=== PATIENT | male | born 1940 | race Caucasian/White ===

== ENCOUNTER 2021-08-09 02:36 | Outpatient (RCR) | payer OTHER, SELFPAY ==
[2021-08-09 12:46] LABS: Abs Immature Grans 0.29 10^3/uL (0.0-0.06); HCT 30.5 % (40.0-50.0); HGB 9.5 g/dL (13.5-17.5); MCH 30.6 pg (27.0-33.0); MCHC 31.1 % (32.0-36.0); MCV 98 fL (80-95); MPV 10.6 fL (8.0-11.0); RDW 20.2 % (11.8-14.1); RDW-SD 67.9 fL
[2021-08-09 13:00] LABS: WBC 41.99 10^3/uL (4.4-10.8)
[2021-08-09 13:02] LABS: ALT 33 U/L (16-63); AST 24 U/L (15-37); Albumin 3.1 g/dL (3.4-5.0); Alkaline Phosphatase 117 U/L (46-116); Anion Gap 9.4 mmol/L (3-11); BUN 21 mg/dL (7-18); Bilirubin, Total 0.9 mg/dL (0.2-1.0); CO2 27.6 mmol/L (21.0-32.0); CREATININE 0.8 mg/dL (0.70-1.30); Calcium 8.4 mg/dL (8.5-10.1); Chloride 100 mmol/L (98-107); Glucose 176 mg/dL (74-106); PHOSPHORUS 3.7 mg/dL (2.6-4.7); Potassium 3.4 mmol/L (3.5-5.1); Sodium 137 mmol/L (136-145); Total Protein 6.4 g/dL (6.4-8.2); Uric Acid 3.3 mg/dL (3.5-7.2)
[2021-08-09 13:14] LABS: Absolute Basophil Count 0.42 10^3/uL (0.0-0.2); Absolute Lymphocyte Count 23.09 10^3/uL (1.2-3.4); Absolute Monocyte Count 8.82 10^3/uL (0.1-0.8); Absolute Neutrophil Count 8.82 10^3/uL (1.2-6.7); Bands % 2; Metamyelocytes % 2
[2021-08-09 13:15] LABS: Anisocytosis 2+; Basophilic Stippling Present; Diff Comment Manual Differential; Polychromasia Present
[2021-08-09 13:16] LABS: Platelet Count 64 10^3/uL (130-400)
== END 2021-08-11 23:59 | disposition home or self-care (01) ==
LOC: INF 02:36
PROVIDERS: PCP Internal Medicine Hematology & Oncology; Visit Provider Family Medicine
DX: C83.10 Mantle cell lymphoma, unspecified site (principal)
CPT/HCPCS: 36415; 80053; 86850; 86900; 86901; 84100; 84550; 85025

== ENCOUNTER 2021-09-10 09:00 | Outpatient (RCR) | payer OTHER, SELFPAY ==
[2021-08-13 08:28] LABS: Abs Immature Grans 0.29 10^3/uL (0.0-0.06); HCT 30.6 % (40.0-50.0); HGB 9.4 g/dL (13.5-17.5); MCH 30.5 pg (27.0-33.0); MCHC 30.7 % (32.0-36.0); MCV 99 fL (80-95); MPV 12.2 fL (8.0-11.0); RBC 3.08 10^6/uL (4.36-5.78); RDW 20.4 % (11.8-14.1); RDW-SD 71.7 fL
[2021-08-13 08:45] LABS: Absolute Lymphocyte Count 28.24 10^3/uL (1.2-3.4); Absolute Monocyte Count 0.96 10^3/uL (0.1-0.8); Absolute Neutrophil Count 6.22 10^3/uL (1.2-6.7); Anisocytosis 2+; Bands % 1; Diff Comment Manual Differential; Other Cells % 26
[2021-08-13 08:46] LABS: Platelet Count 88 10^3/uL (130-400)
[2021-08-13 08:48] LABS: WBC 47.87 10^3/uL (4.4-10.8)
[2021-08-13 09:02] LABS: ALT 24 U/L (16-63); AST 20 U/L (15-37); Albumin 2.9 g/dL (3.4-5.0); Alkaline Phosphatase 122 U/L (46-116); Anion Gap 8.9 mmol/L (3-11); BUN 17 mg/dL (7-18); Bilirubin, Total 0.7 mg/dL (0.2-1.0); CO2 29.1 mmol/L (21.0-32.0); CREATININE 0.8 mg/dL (0.70-1.30); Calcium 8.7 mg/dL (8.5-10.1); Chloride 98 mmol/L (98-107); Glucose 281 mg/dL (74-106); Potassium 3.5 mmol/L (3.5-5.1); Sodium 136 mmol/L (136-145); Total Protein 6.3 g/dL (6.4-8.2)
[2021-08-13 11:41] LABS: PHOSPHORUS 2.5 mg/dL (2.6-4.7); Uric Acid 3.9 mg/dL (3.5-7.2)
[2021-08-16 08:34] LABS: Abs Immature Grans 0.19 10^3/uL (0.0-0.06); HCT 28.3 % (40.0-50.0); HGB 8.7 g/dL (13.5-17.5); MCH 30.5 pg (27.0-33.0); MCHC 30.7 % (32.0-36.0); MCV 99 fL (80-95); MPV 10.6 fL (8.0-11.0); RBC 2.85 10^6/uL (4.36-5.78); RDW 19.7 % (11.8-14.1); RDW-SD 69.9 fL
[2021-08-16 08:38] LABS: ALT 24 U/L (16-63); AST 21 U/L (15-37); Albumin 2.5 g/dL (3.4-5.0); Alkaline Phosphatase 111 U/L (46-116); Anion Gap 8.2 mmol/L (3-11); BUN 11 mg/dL (7-18); Bilirubin, Total 0.6 mg/dL (0.2-1.0); CO2 29.8 mmol/L (21.0-32.0); CREATININE 0.8 mg/dL (0.70-1.30); Calcium 8.1 mg/dL (8.5-10.1); Chloride 95 mmol/L (98-107); Glucose 243 mg/dL (74-106); PHOSPHORUS 2.4 mg/dL (2.6-4.7); Potassium 3.1 mmol/L (3.5-5.1); Sodium 133 mmol/L (136-145); Uric Acid 3.1 mg/dL (3.5-7.2)
[2021-08-16 09:13] LABS: WBC 48.74 10^3/uL (4.4-10.8)
[2021-08-16 09:14] LABS: Absolute Lymphocyte Count 33.14 10^3/uL (1.2-3.4); Absolute Monocyte Count 8.29 10^3/uL (0.1-0.8); Absolute Neutrophil Count 5.85 10^3/uL (1.2-6.7); Anisocytosis 1+; Diff Comment Manual Differential
[2021-08-16 09:15] LABS: Platelet Count 80 10^3/uL (130-400)
[2021-08-20 08:28] LABS: HGB 8.6 g/dL (13.5-17.5); MCH 30.2 pg (27.0-33.0); MCHC 30.7 % (32.0-36.0); MCV 98 fL (80-95); RBC 2.85 10^6/uL (4.36-5.78); RDW 19.1 % (11.8-14.1)
[2021-08-20 08:42] LABS: ALT 30 U/L (16-63); AST 26 U/L (15-37); Albumin 2.7 g/dL (3.4-5.0); Alkaline Phosphatase 119 U/L (46-116); Anion Gap 8.5 mmol/L (3-11); BUN 12 mg/dL (7-18); Bilirubin, Total 0.7 mg/dL (0.2-1.0); CO2 30.5 mmol/L (21.0-32.0); CREATININE 0.8 mg/dL (0.70-1.30); Calcium 8.4 mg/dL (8.5-10.1); Chloride 93 mmol/L (98-107); Glucose 225 mg/dL (74-106); PHOSPHORUS 2.6 mg/dL (2.6-4.7); Potassium 3.3 mmol/L (3.5-5.1); Sodium 132 mmol/L (136-145); Total Protein 6.3 g/dL (6.4-8.2); Uric Acid 4.1 mg/dL (3.5-7.2)
[2021-08-20 08:47] LABS: Absolute Basophil Count 0.61 10^3/uL (0.0-0.2); Absolute Monocyte Count 0.61 10^3/uL (0.1-0.8); Absolute Neutrophil Count 4.85 10^3/uL (1.2-6.7); Atypical Lymphocytes % 2; Metamyelocytes % 1; Myelocytes % 2
[2021-08-20 08:48] LABS: Diff Comment Manual Differential; Other Cells % 16; RBC Morphology Normal
[2021-08-20 08:49] LABS: WBC 60.57 10^3/uL (4.4-10.8)
[2021-08-27 07:59] LABS: HCT 26.6 % (40.0-50.0); HGB 7.8 g/dL (13.5-17.5); MCH 29.9 pg (27.0-33.0); MCHC 29.3 % (32.0-36.0); MCV 102 fL (80-95); MPV 10.5 fL (8.0-11.0); RBC 2.61 10^6/uL (4.36-5.78); RDW 19.9 % (11.8-14.1); RDW-SD 70.4 fL
[2021-08-27 08:14] LABS: WBC 152.12 10^3/uL (4.4-10.8)
[2021-08-27 08:16] LABS: Absolute Lymphocyte Count 95.84 10^3/uL (1.2-3.4); Absolute Monocyte Count 4.56 10^3/uL (0.1-0.8); Absolute Neutrophil Count 51.72 10^3/uL (1.2-6.7); Bands % 6; Diff Comment Manual Differential; Platelet Count 59 10^3/uL (130-400); RBC Morphology Normal
[2021-08-27 08:27] LABS: ALT 32 U/L (16-63); AST 28 U/L (15-37); Albumin 2.6 g/dL (3.4-5.0); Alkaline Phosphatase 185 U/L (46-116); Anion Gap 9.9 mmol/L (3-11); BUN 17 mg/dL (7-18); Bilirubin, Total 0.7 mg/dL (0.2-1.0); CO2 25.1 mmol/L (21.0-32.0); CREATININE 1.1 mg/dL (0.70-1.30); Calcium 8.5 mg/dL (8.5-10.1); Chloride 101 mmol/L (98-107); Glucose 153 mg/dL (74-106); PHOSPHORUS 3.8 mg/dL (2.6-4.7); Potassium 4.7 mmol/L (3.5-5.1); Sodium 136 mmol/L (136-145); Total Protein 5.9 g/dL (6.4-8.2); Uric Acid 5.6 mg/dL (3.5-7.2)
[2021-08-27] MEDS: Furosemide 40 MG/4 ML VIAL IVP (09:41)
[2021-08-27] MEDS: Normal Saline Flush 10 ML SYR IVP (09:42)
[2021-08-27 09:53] VITALS: BP 88/45; PULSE 97; RESP 16; TEMP 36.6; O2SAT 96
[2021-08-27 10:08] VITALS: BP 106/58; PULSE 107; RESP 22; TEMP 36.6; O2SAT 92
[2021-08-27 10:38] VITALS: BP 93/56; PULSE 102; RESP 22; TEMP 36.9; O2SAT 95
[2021-08-27 11:38] VITALS: BP 99/58; PULSE 98; RESP 20; TEMP 36.9; O2SAT 97
[2021-08-27 11:44] VITALS: BP 99/58; PULSE 97; RESP 20; TEMP 36.9; O2SAT 97
[2021-08-30 08:05] LABS: Abs Immature Grans 6.06 10^3/uL (0.0-0.06); HCT 28.7 % (40.0-50.0); HGB 8.6 g/dL (13.5-17.5); MCH 29.8 pg (27.0-33.0); MCV 99 fL (80-95); MPV 9.2 fL (8.0-11.0); RBC 2.89 10^6/uL (4.36-5.78); RDW 20.4 % (11.8-14.1); RDW-SD 70.8 fL
[2021-08-30 08:17] LABS: Absolute Eosinophil Count 1.14 10^3/uL (0.0-0.7); Absolute Lymphocyte Count 52.21 10^3/uL (1.2-3.4); Absolute Monocyte Count 2.27 10^3/uL (0.1-0.8); Atypical Lymphocytes % 8; Bands % 6; Platelet Count 44 10^3/uL (130-400); WBC 113.51 10^3/uL (4.4-10.8)
[2021-08-30 08:18] LABS: Anisocytosis 2+; Diff Comment Manual Differential; Other Cells % 14
[2021-08-30 08:19] LABS: ALT 32 U/L (16-63); AST 35 U/L (15-37); Albumin 2.6 g/dL (3.4-5.0); Alkaline Phosphatase 360 U/L (46-116); Anion Gap 9.3 mmol/L (3-11); BUN 17 mg/dL (7-18); Bilirubin, Total 0.5 mg/dL (0.2-1.0); CO2 24.7 mmol/L (21.0-32.0); Calcium 8.3 mg/dL (8.5-10.1); Chloride 99 mmol/L (98-107); Glucose 157 mg/dL (74-106); PHOSPHORUS 3.2 mg/dL (2.6-4.7); Potassium 4.5 mmol/L (3.5-5.1); Sodium 133 mmol/L (136-145); Total Protein 6.1 g/dL (6.4-8.2); Uric Acid 6.4 mg/dL (3.5-7.2)
[2021-09-10 08:21] LABS: HCT 22.1 % (40.0-50.0); MCH 30.6 pg (27.0-33.0); MCHC 30.3 % (32.0-36.0); MCV 101 fL (80-95); MPV 10.7 fL (8.0-11.0); RBC 2.19 10^6/uL (4.36-5.78); RDW 21.8 % (11.8-14.1); RDW-SD 77.4 fL
[2021-09-10 08:34] LABS: ALT 30 U/L (16-63); AST 18 U/L (15-37); Albumin 2.2 g/dL (3.4-5.0); Alkaline Phosphatase 204 U/L (46-116); Anion Gap 10.9 mmol/L (3-11); BUN 18 mg/dL (7-18); Bilirubin, Total 1.2 mg/dL (0.2-1.0); CO2 24.1 mmol/L (21.0-32.0); CREATININE 0.9 mg/dL (0.70-1.30); Calcium 8.4 mg/dL (8.5-10.1); Chloride 100 mmol/L (98-107); Glucose 200 mg/dL (74-106); PHOSPHORUS 3.8 mg/dL (2.6-4.7); Potassium 4.6 mmol/L (3.5-5.1); Sodium 135 mmol/L (136-145); Total Protein 5.6 g/dL (6.4-8.2); Uric Acid 3.5 mg/dL (3.5-7.2)
[2021-09-10 08:39] LABS: Absolute Lymphocyte Count 42.23 10^3/uL (1.2-3.4); Absolute Neutrophil Count 17.14 10^3/uL (1.2-6.7); Bands % 2; Metamyelocytes % 1; Other Cells % 2; Platelet Count 45 10^3/uL (130-400)
[2021-09-10 08:40] LABS: Anisocytosis 2+; Diff Comment Manual Differential
[2021-09-10 08:54] LABS: HGB 6.7 g/dL (13.5-17.5); WBC 61.21 10^3/uL (4.4-10.8)
[2021-09-10] MEDS: Furosemide 40 MG/4 ML VIAL IVP (09:08)
[2021-09-10] MEDS: Normal Saline Flush 10 ML SYR IVP (09:09)
[2021-09-10 09:30] VITALS: BP 101/52; PULSE 96; RESP 20; TEMP 36.6; O2SAT 93
[2021-09-10 09:50] VITALS: BP 94/57; PULSE 96; RESP 20; TEMP 36.8; O2SAT 93
[2021-09-10 10:10] VITALS: BP 94/54; PULSE 96; RESP 20; TEMP 36.8; O2SAT 93
[2021-09-10 10:45] VITALS: BP 101/56; PULSE 59; RESP 18; TEMP 36.7; O2SAT 95
[2021-09-10 11:45] VITALS: BP 102/62; PULSE 96; RESP 18; TEMP 36.7; O2SAT 95
== END 2021-09-11 23:59 | disposition home or self-care (01) ==
LOC: INF 09:00
PROVIDERS: Internal Medicine Hematology; PCP Internal Medicine Hematology & Oncology; Visit Provider Family Medicine
DX: C83.10 Mantle cell lymphoma, unspecified site (principal)
CPT/HCPCS: 36415; 36430; 80053; 86850; 86900; 86901; 86920; 96374; 84100; 84550; 85025; J1940; P9016

== ENCOUNTER 2021-10-11 02:04 | Outpatient (RCR) | payer OTHER, SELFPAY ==
[2021-09-12 00:05] VITALS: BP 102/62; PULSE 96; RESP 18; TEMP 36.7
[2021-09-20 08:55] LABS: HCT 26.4 % (40.0-50.0); HGB 8.2 g/dL (13.5-17.5); MCH 31.8 pg (27.0-33.0); MCHC 31.1 % (32.0-36.0); MCV 102 fL (80-95); MPV 9.4 fL (8.0-11.0); RBC 2.58 10^6/uL (4.36-5.78); RDW 21.3 % (11.8-14.1); RDW-SD 76.5 fL
[2021-09-20 09:05] LABS: WBC 62.85 10^3/uL (4.4-10.8)
[2021-09-20 09:08] LABS: Absolute Lymphocyte Count 46.51 10^3/uL (1.2-3.4); Absolute Monocyte Count 1.26 10^3/uL (0.1-0.8); Absolute Neutrophil Count 11.31 10^3/uL (1.2-6.7); Atypical Lymphocytes % 3; Bands % 2; Other Cells % 6
[2021-09-20 09:09] LABS: Anisocytosis 2+; Diff Comment Manual Differential; Platelet Count 48 10^3/uL (130-400)
[2021-09-24 08:29] LABS: Abs Immature Grans 1.14 10^3/uL (0.0-0.06); HCT 24.4 % (40.0-50.0); HGB 7.6 g/dL (13.5-17.5); MCH 32.2 pg (27.0-33.0); MCHC 31.1 % (32.0-36.0); MCV 103 fL (80-95); Nucleated RBC 0.1 % (0.0-0.3); RBC 2.36 10^6/uL (4.36-5.78); RDW 21.9 % (11.8-14.1); RDW-SD 81.7 fL
[2021-09-24 08:45] LABS: Absolute Lymphocyte Count 67.33 10^3/uL (1.2-3.4); Absolute Monocyte Count 0.96 10^3/uL (0.1-0.8); Absolute Neutrophil Count 16.35 10^3/uL (1.2-6.7); Anisocytosis 2+; Bands % 2; Diff Comment Manual Differential; Macrocytosis 1+; Other Cells % 12
[2021-09-24 08:54] LABS: WBC 96.19 10^3/uL (4.4-10.8)
[2021-09-24 08:56] LABS: ALT 22 U/L (16-63); AST 24 U/L (15-37); Alkaline Phosphatase 242 U/L (46-116); Anion Gap 8.2 mmol/L (3-11); BUN 13 mg/dL (7-18); Bilirubin, Total 0.5 mg/dL (0.2-1.0); CO2 25.8 mmol/L (21.0-32.0); CREATININE 0.8 mg/dL (0.70-1.30); Calcium 7.8 mg/dL (8.5-10.1); Chloride 100 mmol/L (98-107); Glucose 186 mg/dL (74-106); PHOSPHORUS 2.8 mg/dL (2.6-4.7); Potassium 4.5 mmol/L (3.5-5.1); Sodium 134 mmol/L (136-145); Total Protein 5.2 g/dL (6.4-8.2); Uric Acid 4.6 mg/dL (3.5-7.2)
[2021-09-24] MEDS: Normal Saline Flush 10 ML SYR IVP (09:02)
[2021-09-24] MEDS: Furosemide 40 MG/4 ML VIAL IVP (09:02)
[2021-09-24 09:51] VITALS: BP 102/56; PULSE 94; RESP 18; TEMP 36.5; O2SAT 94
[2021-09-24 10:06] VITALS: BP 92/56; PULSE 98; RESP 18; TEMP 36.6; O2SAT 97
[2021-09-24 10:22] VITALS: BP 94/55; PULSE 96; RESP 18; TEMP 36.5; O2SAT 96
[2021-09-24 10:36] VITALS: BP 99/57; PULSE 85; RESP 17; TEMP 36.5; O2SAT 100
[2021-09-24 12:00] VITALS: BP 88/59; PULSE 88; RESP 18; TEMP 36.6; O2SAT 98
[2021-09-28] MEDS: Normal Saline Flush 10 ML SYR IVP (08:12)
[2021-09-28 08:28] LABS: Abs Immature Grans 0.52 10^3/uL (0.0-0.06); HCT 28.7 % (40.0-50.0); HGB 8.6 g/dL (13.5-17.5); MCH 31.6 pg (27.0-33.0); MCV 106 fL (80-95); MPV 9.3 fL (8.0-11.0); RBC 2.72 10^6/uL (4.36-5.78); RDW 21.4 % (11.8-14.1); RDW-SD 80.4 fL
[2021-09-28 08:41] LABS: ALT 27 U/L (16-63); AST 34 U/L (15-37); Albumin 2.3 g/dL (3.4-5.0); Alkaline Phosphatase 237 U/L (46-116); Anion Gap 7.2 mmol/L (3-11); BUN 12 mg/dL (7-18); Bilirubin, Total 0.6 mg/dL (0.2-1.0); CO2 30.8 mmol/L (21.0-32.0); CREATININE 0.7 mg/dL (0.70-1.30); Calcium 7.8 mg/dL (8.5-10.1); Chloride 103 mmol/L (98-107); Glucose 159 mg/dL (74-106); PHOSPHORUS 3.3 mg/dL (2.6-4.7); Potassium 4.6 mmol/L (3.5-5.1); Sodium 141 mmol/L (136-145); Total Protein 5.7 g/dL (6.4-8.2); Uric Acid 4.8 mg/dL (3.5-7.2)
[2021-09-28 09:22] LABS: Platelet Count 51 10^3/uL (130-400)
[2021-09-28 09:34] LABS: Absolute Neutrophil Count 9.26 10^3/uL (1.2-6.7); Bands % 0
[2021-09-28 09:35] LABS: Absolute Monocyte Count 22.23 10^3/uL (0.1-0.8); Atypical Lymphocytes % 0; Metamyelocytes % 2
[2021-09-28 09:36] LABS: Anisocytosis 2+; Diff Comment Manual Differential; Macrocytosis 2+; Other Cells % 13; Polychromasia Present
[2021-09-28 09:42] LABS: WBC 61.75 10^3/uL (4.4-10.8)
[2021-10-01] MEDS: Normal Saline Flush 10 ML SYR IVP (07:55)
[2021-10-01 08:07] LABS: HCT 27.3 % (40.0-50.0); HGB 8.5 g/dL (13.5-17.5); MCH 32.6 pg (27.0-33.0); MCHC 31.1 % (32.0-36.0); MCV 105 fL (80-95); MPV 10.8 fL (8.0-11.0); RBC 2.61 10^6/uL (4.36-5.78); RDW-SD 79.3 fL
[2021-10-01 08:18] LABS: WBC 50.36 10^3/uL (4.4-10.8)
[2021-10-01 08:26] LABS: Absolute Lymphocyte Count 39.28 10^3/uL (1.2-3.4); Absolute Monocyte Count 1.51 10^3/uL (0.1-0.8); Absolute Neutrophil Count 4.53 10^3/uL (1.2-6.7); Anisocytosis 2+; Bands % 1; Diff Comment Manual Differential; Other Cells % 9; Platelet Count 39 10^3/uL (130-400)
[2021-10-01 08:31] LABS: ALT 28 U/L (16-63); AST 28 U/L (15-37); Albumin 2.3 g/dL (3.4-5.0); Alkaline Phosphatase 228 U/L (46-116); BUN 12 mg/dL (7-18); Bilirubin, Total 0.6 mg/dL (0.2-1.0); CREATININE 0.7 mg/dL (0.70-1.30); Calcium 8.1 mg/dL (8.5-10.1); Chloride 96 mmol/L (98-107); Glucose 181 mg/dL (74-106); PHOSPHORUS 2.9 mg/dL (2.6-4.7); Potassium 4.2 mmol/L (3.5-5.1); Sodium 133 mmol/L (136-145); Total Protein 5.5 g/dL (6.4-8.2)
[2021-10-04 08:36] LABS: HCT 24.2 % (40.0-50.0); HGB 7.8 g/dL (13.5-17.5); MCH 32.9 pg (27.0-33.0); MCHC 32.2 % (32.0-36.0); MCV 102 fL (80-95); RBC 2.37 10^6/uL (4.36-5.78); RDW 20.9 % (11.8-14.1)
[2021-10-04 08:50] LABS: ALT 25 U/L (16-63); AST 26 U/L (15-37); Albumin 2.3 g/dL (3.4-5.0); Alkaline Phosphatase 226 U/L (46-116); BUN 13 mg/dL (7-18); Bilirubin, Total 0.6 mg/dL (0.2-1.0); CREATININE 0.8 mg/dL (0.70-1.30); Calcium 8.1 mg/dL (8.5-10.1); Chloride 95 mmol/L (98-107); Glucose 149 mg/dL (74-106); PHOSPHORUS 3.3 mg/dL (2.6-4.7); Potassium 3.9 mmol/L (3.5-5.1); Sodium 132 mmol/L (136-145); Total Protein 5.5 g/dL (6.4-8.2); Uric Acid 4.1 mg/dL (3.5-7.2)
[2021-10-04 09:02] LABS: WBC 47.38 10^3/uL (4.4-10.8)
[2021-10-04 09:10] LABS: Absolute Lymphocyte Count 41.22 10^3/uL (1.2-3.4); Absolute Monocyte Count 0.47 10^3/uL (0.1-0.8); Absolute Neutrophil Count 4.26 10^3/uL (1.2-6.7); Platelet Count 51 10^3/uL (130-400)
[2021-10-04 09:11] LABS: Anisocytosis 2+; Diff Comment Manual Differential; Other Cells % 3
[2021-10-04 09:42] VITALS: BP 96/58; PULSE 97; RESP 18; TEMP 36.7; O2SAT 96
[2021-10-04] MEDS: Furosemide 40 MG/4 ML VIAL IVP (09:53)
[2021-10-04 09:57] VITALS: BP 99/58; PULSE 94; RESP 18; TEMP 36.5; O2SAT 95
[2021-10-04 10:12] VITALS: BP 122/76; PULSE 94; RESP 18; TEMP 36.6; O2SAT 95
[2021-10-04 10:42] VITALS: BP 114/48; PULSE 100; RESP 18; TEMP 36.2; O2SAT 94
[2021-10-04] MEDS: Normal Saline Flush 10 ML SYR IVP (11:30)
[2021-10-04 11:42] VITALS: BP 112/50; PULSE 99; RESP 18; TEMP 36.4; O2SAT 95
[2021-10-04 11:59] VITALS: BP 103/49; PULSE 99; RESP 18; TEMP 36.4; O2SAT 98
[2021-10-08 07:59] LABS: HCT 27.9 % (40.0-50.0); HGB 8.9 g/dL (13.5-17.5); MCH 33.2 pg (27.0-33.0); MCHC 31.9 % (32.0-36.0); MCV 104 fL (80-95); RBC 2.68 10^6/uL (4.36-5.78); RDW 20.9 % (11.8-14.1); RDW-SD 77.7 fL
[2021-10-08 08:08] LABS: Absolute Eosinophil Count 0.68 10^3/uL (0.0-0.7); Absolute Lymphocyte Count 47.79 10^3/uL (1.2-3.4); Absolute Monocyte Count 1.37 10^3/uL (0.1-0.8); Absolute Neutrophil Count 6.83 10^3/uL (1.2-6.7); Bands % 5
[2021-10-08 08:09] LABS: Anisocytosis 2+; Diff Comment Manual Differential; Other Cells % 17; Platelet Count 61 10^3/uL (130-400)
[2021-10-08 08:12] LABS: WBC 68.27 10^3/uL (4.4-10.8)
[2021-10-08 08:13] LABS: PHOSPHORUS 3.5 mg/dL (2.6-4.7); Uric Acid 4.4 mg/dL (3.5-7.2)
[2021-10-11 08:02] LABS: HCT 30.6 % (40.0-50.0); HGB 9.3 g/dL (13.5-17.5); MCH 32.2 pg (27.0-33.0); MCHC 30.4 % (32.0-36.0); MCV 106 fL (80-95); RBC 2.89 10^6/uL (4.36-5.78); RDW 20.8 % (11.8-14.1)
[2021-10-11 08:16] LABS: Absolute Lymphocyte Count 70.08 10^3/uL (1.2-3.4); Absolute Monocyte Count 1.57 10^3/uL (0.1-0.8); Absolute Neutrophil Count 3.15 10^3/uL (1.2-6.7); Anisocytosis 2+; Atypical Lymphocytes % 1; Bands % 1; Diff Comment Manual Differential; Metamyelocytes % 3; Other Cells % 2
[2021-10-11 08:17] LABS: Macrocytosis 1+
[2021-10-11 08:19] LABS: ALT 31 U/L (16-63); AST 35 U/L (15-37); Albumin 2.4 g/dL (3.4-5.0); Alkaline Phosphatase 306 U/L (46-116); Anion Gap 6.4 mmol/L (3-11); BUN 12 mg/dL (7-18); Bilirubin, Total 0.4 mg/dL (0.2-1.0); CO2 27.6 mmol/L (21.0-32.0); CREATININE 0.7 mg/dL (0.70-1.30); Calcium 8.3 mg/dL (8.5-10.1); Chloride 103 mmol/L (98-107); Glucose 163 mg/dL (74-106); PHOSPHORUS 3.1 mg/dL (2.6-4.7); Potassium 4.9 mmol/L (3.5-5.1); Sodium 137 mmol/L (136-145); Total Protein 5.8 g/dL (6.4-8.2); Uric Acid 4.8 mg/dL (3.5-7.2)
[2021-10-11 08:22] LABS: WBC 78.74 10^3/uL (4.4-10.8)
[2021-10-11] MEDS: Normal Saline Flush 10 ML SYR IVP (08:40)
== END 2021-10-11 23:59 | disposition home or self-care (01) ==
LOC: INF 02:04
PROVIDERS: Internal Medicine Hematology; PCP Internal Medicine Hematology & Oncology; Visit Provider Family Medicine
DX: C83.10 Mantle cell lymphoma, unspecified site (principal)
CPT/HCPCS: 36415; 36430; 80053; 86850; 86900; 86901; 86920; 84100; 84550; 85025; J1940; P9016

== ENCOUNTER 2021-11-08 02:44 | Outpatient (RCR) | payer OTHER, SELFPAY ==
[2021-10-12 00:04] VITALS: BP 103/49; PULSE 99; RESP 18; TEMP 36.4
[2021-10-22 08:18] LABS: HCT 25.4 % (40.0-50.0); MCH 33.2 pg (27.0-33.0); MCHC 31.5 % (32.0-36.0); MCV 105 fL (80-95); RBC 2.41 10^6/uL (4.36-5.78); RDW 21.5 % (11.8-14.1); RDW-SD 81.7 fL
[2021-10-22 08:32] LABS: ALT 24 U/L (16-63); AST 32 U/L (15-37); Albumin 2.6 g/dL (3.4-5.0); Alkaline Phosphatase 339 U/L (46-116); Anion Gap 9.5 mmol/L (3-11); BUN 11 mg/dL (7-18); Bilirubin, Total 0.4 mg/dL (0.2-1.0); CO2 25.5 mmol/L (21.0-32.0); CREATININE 0.7 mg/dL (0.70-1.30); Calcium 8.4 mg/dL (8.5-10.1); Chloride 102 mmol/L (98-107); Glucose 161 mg/dL (74-106); PHOSPHORUS 3.8 mg/dL (2.6-4.7); Potassium 4.6 mmol/L (3.5-5.1); Sodium 137 mmol/L (136-145); Total Protein 6.1 g/dL (6.4-8.2); Uric Acid 3.4 mg/dL (3.5-7.2)
[2021-10-22 08:40] LABS: Absolute Neutrophil Count 8.88 10^3/uL (1.2-6.7)
[2021-10-22 08:41] LABS: Absolute Lymphocyte Count 96.41 10^3/uL (1.2-3.4); Absolute Monocyte Count 1.27 10^3/uL (0.1-0.8); Diff Comment Manual Differential; Macrocytosis 2+; Other Cells % 16
[2021-10-22 08:56] LABS: WBC 126.86 10^3/uL (4.4-10.8)
[2021-10-22] MEDS: Furosemide 40 MG/4 ML VIAL IVP (09:00)
[2021-10-22] MEDS: Normal Saline Flush 10 ML SYR IVP (09:00)
[2021-10-22 09:44] VITALS: BP 97/59; PULSE 95; RESP 18; TEMP 36.4; O2SAT 96
[2021-10-22 10:00] VITALS: BP 109/61; PULSE 100; RESP 18; TEMP 36.3; O2SAT 97
[2021-10-22 10:13] VITALS: BP 106/65; PULSE 100; RESP 18; TEMP 36.2; O2SAT 96
[2021-10-22 10:45] VITALS: BP 109/67; PULSE 102; RESP 19; TEMP 36.2; O2SAT 94
[2021-10-22 11:45] VITALS: BP 107/59; PULSE 93; RESP 18; TEMP 36.3; O2SAT 97
[2021-10-25 08:22] LABS: HCT 25.3 % (40.0-50.0); HGB 7.2 g/dL (13.5-17.5); MCH 30.4 pg (27.0-33.0); MCHC 28.5 % (32.0-36.0); MCV 107 fL (80-95); MPV 8.9 fL (8.0-11.0); RBC 2.37 10^6/uL (4.36-5.78)
[2021-10-25 08:29] LABS: WBC 394.45 10^3/uL (4.4-10.8)
[2021-10-25 08:31] LABS: Absolute Lymphocyte Count 370.78 10^3/uL (1.2-3.4); Absolute Monocyte Count 3.94 10^3/uL (0.1-0.8); Absolute Neutrophil Count 3.94 10^3/uL (1.2-6.7); Platelet Count 42 10^3/uL (130-400)
[2021-10-25 08:32] LABS: Anisocytosis 2+; Diff Comment Manual Differential; Macrocytosis 2+; Other Cells % 4
[2021-10-25 08:39] LABS: ALT 24 U/L (16-63); AST 35 U/L (15-37); Albumin 2.8 g/dL (3.4-5.0); Alkaline Phosphatase 346 U/L (46-116); Anion Gap 7.5 mmol/L (3-11); BUN 15 mg/dL (7-18); Bilirubin, Total 0.5 mg/dL (0.2-1.0); CO2 27.5 mmol/L (21.0-32.0); CREATININE 0.7 mg/dL (0.70-1.30); Calcium 8.4 mg/dL (8.5-10.1); Chloride 103 mmol/L (98-107); Glucose 148 mg/dL (74-106); PHOSPHORUS 3.9 mg/dL (2.6-4.7); Sodium 138 mmol/L (136-145); Total Protein 6.2 g/dL (6.4-8.2)
[2021-10-25] MEDS: Furosemide 40 MG/4 ML VIAL IVP (08:43)
[2021-10-25] MEDS: Normal Saline Flush 10 ML SYR IVP (08:43)
[2021-10-25 08:53] VITALS: BP 88/62; PULSE 98; RESP 18; TEMP 36.6; O2SAT 97
[2021-10-25 09:08] VITALS: BP 88/63; PULSE 89; RESP 17; TEMP 36.5; O2SAT 98
[2021-10-25 09:30] VITALS: BP 86/58; PULSE 88; RESP 18; TEMP 36.6; O2SAT 96
[2021-10-25 10:00] VITALS: BP 81/59; PULSE 92; RESP 17; TEMP 36.4; O2SAT 96
[2021-10-25 10:45] VITALS: BP 96/63; PULSE 95; RESP 17; TEMP 36.4; O2SAT 97
[2021-10-29] VITALS (8 sets, daily range): BP systolic 74–92; BP diastolic 47–57; PULSE 60–95; RESP 16–18; TEMP 36.6–36.9; O2SAT 96–99
[2021-10-29] MEDS: Normal Saline Flush 10 ML SYR IVP (07:54)
[2021-10-29 08:07] LABS: HGB 7.4 g/dL (13.5-17.5); MCHC 26.4 % (32.0-36.0); MCV 106 fL (80-95); RBC 2.64 10^6/uL (4.36-5.78); RDW 21.2 % (11.8-14.1)
[2021-10-29 08:20] LABS: ALT 23 U/L (16-63); AST 17 U/L (15-37); Alkaline Phosphatase 237 U/L (46-116); Anion Gap 7.5 mmol/L (3-11); BUN 16 mg/dL (7-18); Bilirubin, Total 0.7 mg/dL (0.2-1.0); CO2 27.5 mmol/L (21.0-32.0); CREATININE 0.6 mg/dL (0.70-1.30); Calcium 8.6 mg/dL (8.5-10.1); Chloride 101 mmol/L (98-107); Glucose 179 mg/dL (74-106); Potassium 4.2 mmol/L (3.5-5.1); Sodium 136 mmol/L (136-145); Total Protein 6.6 g/dL (6.4-8.2); Uric Acid 2.6 mg/dL (3.5-7.2)
[2021-10-29 08:23] LABS: Absolute Lymphocyte Count 267.93 10^3/uL (1.2-3.4); Diff Comment Manual Differential; Other Cells % 17
[2021-10-29 08:26] LABS: Anisocytosis 2+; Hypochromasia 1+; Macrocytosis 2+
[2021-11-01 08:44] LABS: HCT 27.7 % (40.0-50.0); HGB 8.1 g/dL (13.5-17.5); Immature Grans % 0.2; MCH 30.7 pg (27.0-33.0); MCHC 29.2 % (32.0-36.0); MCV 105 fL (80-95); MPV 8.8 fL (8.0-11.0); Platelet Count 51 10^3/uL (130-400); RBC 2.64 10^6/uL (4.36-5.78); RDW 20.8 % (11.8-14.1); RDW-SD 73.1 fL
[2021-11-01 09:12] LABS: ALT 29 U/L (16-63); AST 28 U/L (15-37); Alkaline Phosphatase 233 U/L (46-116); BUN 16 mg/dL (7-18); Bilirubin, Total 0.7 mg/dL (0.2-1.0); CREATININE 0.6 mg/dL (0.70-1.30); Calcium 8.4 mg/dL (8.5-10.1); Chloride 100 mmol/L (98-107); Glucose 181 mg/dL (74-106); PHOSPHORUS 3.9 mg/dL (2.6-4.7); Potassium 4.2 mmol/L (3.5-5.1); Sodium 135 mmol/L (136-145); Total Protein 6.1 g/dL (6.4-8.2); Uric Acid 2.8 mg/dL (3.5-7.2)
[2021-11-01 09:37] LABS: Absolute Eosinophil Count 2.79 10^3/uL (0.0-0.7); Absolute Lymphocyte Count 259.85 10^3/uL (1.2-3.4); Absolute Neutrophil Count 16.76 10^3/uL (1.2-6.7); Bands % 1
[2021-11-01 09:45] LABS: WBC 279.41 10^3/uL (4.4-10.8)
[2021-11-01 09:46] LABS: Anisocytosis 2+; Diff Comment Manual Differential
[2021-11-01 09:47] LABS: Macrocytosis 1+
[2021-11-05] MEDS: Normal Saline Flush 10 ML SYR IVP (08:03)
[2021-11-05 08:17] LABS: HCT 27.5 % (40.0-50.0); HGB 8.3 g/dL (13.5-17.5); MCH 31.4 pg (27.0-33.0); MCHC 30.2 % (32.0-36.0); MCV 104 fL (80-95); MPV 10.1 fL (8.0-11.0); RBC 2.64 10^6/uL (4.36-5.78); RDW 20.9 % (11.8-14.1); RDW-SD 75.1 fL
[2021-11-05 08:33] LABS: Absolute Lymphocyte Count 155.81 10^3/uL (1.2-3.4); Absolute Monocyte Count 3.71 10^3/uL (0.1-0.8); Absolute Neutrophil Count 5.56 10^3/uL (1.2-6.7); Diff Comment Manual Differential; Other Cells % 11
[2021-11-05 08:34] LABS: Anisocytosis 2+; Platelet Count 80 10^3/uL (130-400)
[2021-11-05 08:44] LABS: ALT 30 U/L (16-63); AST 21 U/L (15-37); Albumin 3.1 g/dL (3.4-5.0); Alkaline Phosphatase 213 U/L (46-116); Anion Gap 7.7 mmol/L (3-11); BUN 14 mg/dL (7-18); Bilirubin, Total 0.6 mg/dL (0.2-1.0); CO2 28.3 mmol/L (21.0-32.0); CREATININE 0.6 mg/dL (0.70-1.30); Calcium 8.7 mg/dL (8.5-10.1); Chloride 101 mmol/L (98-107); Glucose 112 mg/dL (74-106); PHOSPHORUS 4.2 mg/dL (2.6-4.7); Potassium 4.3 mmol/L (3.5-5.1); Sodium 137 mmol/L (136-145); Total Protein 6.1 g/dL (6.4-8.2); Uric Acid 2.9 mg/dL (3.5-7.2); WBC 185.49 10^3/uL (4.4-10.8)
[2021-11-08 08:13] LABS: HCT 27.2 % (40.0-50.0); HGB 8.3 g/dL (13.5-17.5); MCH 31.9 pg (27.0-33.0); MCHC 30.5 % (32.0-36.0); MCV 105 fL (80-95); RDW 21.2 % (11.8-14.1); RDW-SD 75.9 fL
[2021-11-08] MEDS: Normal Saline Flush 10 ML SYR IVP (08:18)
[2021-11-08 08:37] LABS: Absolute Lymphocyte Count 145.04 10^3/uL (1.2-3.4); Absolute Monocyte Count 6.31 10^3/uL (0.1-0.8); Absolute Neutrophil Count 3.15 10^3/uL (1.2-6.7)
[2021-11-08 08:38] LABS: Anisocytosis 2+; Diff Comment Manual Differential; Other Cells % 4
[2021-11-08 08:42] LABS: ALT 37 U/L (16-63); AST 26 U/L (15-37); Albumin 3.2 g/dL (3.4-5.0); Alkaline Phosphatase 219 U/L (46-116); Anion Gap 8.4 mmol/L (3-11); BUN 14 mg/dL (7-18); Bilirubin, Total 0.5 mg/dL (0.2-1.0); CO2 26.6 mmol/L (21.0-32.0); CREATININE 0.6 mg/dL (0.70-1.30); Calcium 8.5 mg/dL (8.5-10.1); Chloride 99 mmol/L (98-107); Glucose 127 mg/dL (74-106); Potassium 4.3 mmol/L (3.5-5.1); Sodium 134 mmol/L (136-145); Total Protein 6.3 g/dL (6.4-8.2); Uric Acid 2.7 mg/dL (3.5-7.2)
[2021-11-08 08:50] LABS: WBC 157.65 10^3/uL (4.4-10.8)
== END 2021-11-11 23:59 | disposition home or self-care (01) ==
LOC: INF 02:44
PROVIDERS: Internal Medicine Hematology; PCP Internal Medicine Hematology & Oncology; Visit Provider Family Medicine
DX: C83.10 Mantle cell lymphoma, unspecified site (principal)
CPT/HCPCS: 36415; 36430; 80053; 86850; 86900; 86901; 86920; 96365; 96366; 84100; 84550; 85025; J1940; P9016

== ENCOUNTER 2021-12-10 02:50 | Outpatient (RCR) | payer OTHER, SELFPAY ==
[2021-11-12 00:17] VITALS: BP 82/53; PULSE 90; RESP 18; TEMP 36.9
[2021-11-12 07:57] LABS: HGB 8.2 g/dL (13.5-17.5); MCH 32.4 pg (27.0-33.0); MCHC 30.4 % (32.0-36.0); MCV 107 fL (80-95); RBC 2.53 10^6/uL (4.36-5.78); RDW-SD 82.3 fL
[2021-11-12] MEDS: Normal Saline Flush 10 ML SYR IVP (07:58)
[2021-11-12 08:25] LABS: WBC 115.74 10^3/uL (4.4-10.8)
[2021-11-12 08:27] LABS: Absolute Lymphocyte Count 104.17 10^3/uL (1.2-3.4); Absolute Monocyte Count 2.31 10^3/uL (0.1-0.8); Absolute Neutrophil Count 3.47 10^3/uL (1.2-6.7); Diff Comment Manual Differential; Other Cells % 5
[2021-11-12 08:28] LABS: Anisocytosis 2+; Hypochromasia 1+; Macrocytosis 2+
[2021-11-12 08:44] LABS: ALT 25 U/L (16-63); AST 15 U/L (15-37); Albumin 3.2 g/dL (3.4-5.0); Alkaline Phosphatase 170 U/L (46-116); Anion Gap 7.4 mmol/L (3-11); BUN 12 mg/dL (7-18); Bilirubin, Total 0.6 mg/dL (0.2-1.0); CO2 27.6 mmol/L (21.0-32.0); CREATININE 0.7 mg/dL (0.70-1.30); Calcium 8.3 mg/dL (8.5-10.1); Chloride 99 mmol/L (98-107); Glucose 134 mg/dL (74-106); Sodium 134 mmol/L (136-145); Total Protein 6.6 g/dL (6.4-8.2); Uric Acid 2.8 mg/dL (3.5-7.2)
[2021-11-15 08:05] LABS: HCT 27.4 % (40.0-50.0); HGB 8.4 g/dL (13.5-17.5); MCH 32.8 pg (27.0-33.0); MCHC 30.7 % (32.0-36.0); MCV 107 fL (80-95); MPV 11.6 fL (8.0-11.0); RBC 2.56 10^6/uL (4.36-5.78); RDW 22.2 % (11.8-14.1); RDW-SD 83.4 fL
[2021-11-15 08:24] LABS: ALT 22 U/L (16-63); AST 12 U/L (15-37); Albumin 3.3 g/dL (3.4-5.0); Alkaline Phosphatase 160 U/L (46-116); Anion Gap 5.8 mmol/L (3-11); BUN 11 mg/dL (7-18); Bilirubin, Total 0.7 mg/dL (0.2-1.0); CO2 29.2 mmol/L (21.0-32.0); CREATININE 0.6 mg/dL (0.70-1.30); Calcium 8.2 mg/dL (8.5-10.1); Chloride 98 mmol/L (98-107); Glucose 115 mg/dL (74-106); PHOSPHORUS 4.1 mg/dL (2.6-4.7); Sodium 133 mmol/L (136-145); Total Protein 6.4 g/dL (6.4-8.2); Uric Acid 2.7 mg/dL (3.5-7.2)
[2021-11-15 08:39] LABS: WBC 83.26 10^3/uL (4.4-10.8)
[2021-11-15 08:41] LABS: Anisocytosis 2+; Diff Comment Manual Differential; Hypochromasia 2+; Macrocytosis 2+; Polychromasia Present
[2021-11-15 08:48] LABS: Potassium 4.2 mmol/L (3.5-5.1)
[2021-11-15 11:01] LABS: Other Cells % 8
[2021-11-19 07:57] LABS: HCT 27.2 % (40.0-50.0); HGB 8.5 g/dL (13.5-17.5); MCH 33.2 pg (27.0-33.0); MCHC 31.3 % (32.0-36.0); MCV 106 fL (80-95); RBC 2.56 10^6/uL (4.36-5.78); RDW-SD 84.1 fL
[2021-11-19 08:13] LABS: Anion Gap 7.3 mmol/L (3-11); BUN 12 mg/dL (7-18); CO2 26.7 mmol/L (21.0-32.0); CREATININE 0.6 mg/dL (0.70-1.30); Calcium 8.4 mg/dL (8.5-10.1); Chloride 102 mmol/L (98-107); Glucose 121 mg/dL (74-106); PHOSPHORUS 4.4 mg/dL (2.6-4.7); Potassium 4.3 mmol/L (3.5-5.1); Sodium 136 mmol/L (136-145); Uric Acid 2.8 mg/dL (3.5-7.2)
[2021-11-19 08:31] LABS: Absolute Lymphocyte Count 59.48 10^3/uL (1.2-3.4); Absolute Monocyte Count 1.37 10^3/uL (0.1-0.8); Absolute Neutrophil Count 4.79 10^3/uL (1.2-6.7); Atypical Lymphocytes % 1; Other Cells % 4
[2021-11-19 08:32] LABS: Anisocytosis 2+; Diff Comment Manual Differential; Macrocytosis 2+
[2021-11-19 08:35] LABS: WBC 68.37 10^3/uL (4.4-10.8)
[2021-12-10 08:18] LABS: Abs Immature Grans 0.09 10^3/uL (0.0-0.06); Absolute Eosinophil Count 0.04 10^3/uL (0.0-0.7); Basophils % 0.5; Eosinophils % 0.2; HCT 26.9 % (40.0-50.0); HGB 8.6 g/dL (13.5-17.5); Immature Grans % 0.5; Lymphocytes % 73.3; MCH 35.2 pg (27.0-33.0); MCV 110 fL (80-95); MPV 10.8 fL (8.0-11.0); Monocytes % 4.9; Neutrophils % 20.6; Platelet Count 128 10^3/uL (130-400); RBC 2.44 10^6/uL (4.36-5.78); RDW 18.7 % (11.8-14.1); RDW-SD 75.4 fL
[2021-12-10 08:20] LABS: Absolute Lymphocyte Count 14.37 10^3/uL (1.2-3.4); Absolute Monocyte Count 0.96 10^3/uL (0.1-0.8); Absolute Neutrophil Count 4.04 10^3/uL (1.2-6.7)
[2021-12-10 08:51] LABS: ALT 18 U/L (16-63); AST 10 U/L (15-37); Albumin 3.2 g/dL (3.4-5.0); Alkaline Phosphatase 122 U/L (46-116); BUN 14 mg/dL (7-18); Bilirubin, Total 0.5 mg/dL (0.2-1.0); CREATININE 0.7 mg/dL (0.70-1.30); Calcium 8.5 mg/dL (8.5-10.1); Chloride 102 mmol/L (98-107); Glucose 140 mg/dL (74-106); Sodium 140 mmol/L (136-145); Total Protein 6.6 g/dL (6.4-8.2)
[2021-12-10 09:25] LABS: Diff Comment Agrees w/ Instrument; Hypochromasia 2+; Macrocytosis 2+
== END 2021-12-12 23:59 | disposition home or self-care (01) ==
LOC: INF 02:50
PROVIDERS: Internal Medicine Hematology; Nurse Practitioner Adult Health; PCP Internal Medicine Hematology & Oncology; Visit Provider Family Medicine
DX: C83.10 Mantle cell lymphoma, unspecified site (principal)
CPT/HCPCS: 36415; 80048; 80053; 86900; 86901; 84100; 84550; 85025

== ENCOUNTER 2022-07-08 02:13 | Outpatient (RCR) | payer OTHER, SELFPAY ==
[2022-06-17 08:28] LABS: Absolute Basophil Count 0.02 10^3/uL (0.0-0.2); Absolute Lymphocyte Count 1.27 10^3/uL (1.2-3.4); Absolute Monocyte Count 1.29 10^3/uL (0.1-0.8); Absolute Neutrophil Count 4.04 10^3/uL (1.2-6.7); Basophils % 0.3; HCT 24.5 % (40.0-50.0); HGB 7.5 g/dL (13.5-17.5); Immature Grans % 1.5; Lymphocytes % 18.9; MCH 33.3 pg (27.0-33.0); MCHC 30.6 % (32.0-36.0); MCV 109 fL (80-95); Monocytes % 19.2; Neutrophils % 60.1; Nucleated RBC 0.6 % (0.0-0.3); RBC 2.25 10^6/uL (4.36-5.78); RDW 21.3 % (11.8-14.1); RDW-SD 83.2 fL; WBC 6.72 10^3/uL (4.4-10.8)
[2022-06-17 08:38] LABS: Platelet Count 39 10^3/uL (130-400)
[2022-06-17 08:39] LABS: Anisocytosis 2+; Diff Comment Diff Reviewed; Macrocytosis 2+
[2022-06-17 08:42] LABS: ALT 14 U/L (16-63); AST 23 U/L (15-37); Albumin 3.2 g/dL (3.4-5.0); Alkaline Phosphatase 148 U/L (46-116); Anion Gap 12.1 mmol/L (3-11); BUN 16 mg/dL (7-18); Bilirubin, Total 0.6 mg/dL (0.2-1.0); CO2 24.9 mmol/L (21.0-32.0); CREATININE 0.8 mg/dL (0.70-1.30); Calcium 8.8 mg/dL (8.5-10.1); Chloride 97 mmol/L (98-107); Estimated GFR 89.47 (mL/min/1.73m2); Glucose 123 mg/dL (74-106); PHOSPHORUS 4.4 mg/dL (2.6-4.7); Potassium 4.6 mmol/L (3.5-5.1); Sodium 134 mmol/L (136-145); Total Protein 6.4 g/dL (6.4-8.2); Uric Acid 4.1 mg/dL (3.5-7.2)
[2022-06-17] MEDS: Normal Saline Flush 10 ML SYR IVP (09:05)
[2022-06-17 09:54] VITALS: BP 86/53; PULSE 69; RESP 20; TEMP 37.4; O2SAT 93
[2022-06-17 10:11] VITALS: BP 85/53; PULSE 104; RESP 20; TEMP 37.3; O2SAT 97
[2022-06-17 10:25] VITALS: BP 84/52; PULSE 103; RESP 20; TEMP 36.9; O2SAT 97
[2022-06-17 10:55] VITALS: BP 87/55; PULSE 106; RESP 18; TEMP 37.1; O2SAT 96
[2022-06-17 11:44] VITALS: BP 98/62; PULSE 104; RESP 18; TEMP 36.5; O2SAT 96
[2022-06-24] MEDS: Normal Saline Flush 10 ML SYR IVP (08:21)
[2022-06-24 08:48] LABS: Abs Immature Grans 0.08 10^3/uL (0.0-0.06); Absolute Basophil Count 0.04 10^3/uL (0.0-0.2); Absolute Lymphocyte Count 1.13 10^3/uL (1.2-3.4); Absolute Monocyte Count 1.34 10^3/uL (0.1-0.8); Absolute Neutrophil Count 3.66 10^3/uL (1.2-6.7); Basophils % 0.6; HCT 25.9 % (40.0-50.0); Immature Grans % 1.3; Lymphocytes % 18.1; MCH 33.8 pg (27.0-33.0); MCHC 30.9 % (32.0-36.0); MCV 109 fL (80-95); MPV 12.6 fL (8.0-11.0); Monocytes % 21.4; Neutrophils % 58.6; Nucleated RBC 0.3 % (0.0-0.3); RBC 2.37 10^6/uL (4.36-5.78); RDW 21.8 % (11.8-14.1); RDW-SD 85.5 fL; WBC 6.25 10^3/uL (4.4-10.8)
[2022-06-24 09:00] LABS: ALT 15 U/L (16-63); AST 29 U/L (15-37); Albumin 3.1 g/dL (3.4-5.0); Alkaline Phosphatase 138 U/L (46-116); Anion Gap 12.5 mmol/L (3-11); BUN 18 mg/dL (7-18); Bilirubin, Total 0.7 mg/dL (0.2-1.0); CO2 25.5 mmol/L (21.0-32.0); CREATININE 0.8 mg/dL (0.70-1.30); Calcium 8.9 mg/dL (8.5-10.1); Chloride 96 mmol/L (98-107); Estimated GFR 89.47 (mL/min/1.73m2); Glucose 106 mg/dL (74-106); PHOSPHORUS 4.2 mg/dL (2.6-4.7); Potassium 4.8 mmol/L (3.5-5.1); Sodium 134 mmol/L (136-145); Total Protein 6.5 g/dL (6.4-8.2); Uric Acid 4.2 mg/dL (3.5-7.2)
[2022-06-24 09:25] LABS: Platelet Count 51 10^3/uL (130-400)
[2022-06-24 09:29] LABS: Anisocytosis 1+; Diff Comment Diff Reviewed; Macrocytosis 1+
[2022-06-24 09:58] VITALS: BP 93/59; PULSE 60; RESP 18; TEMP 36.9; O2SAT 97
[2022-06-24 10:15] VITALS: BP 90/51; PULSE 102; RESP 19; TEMP 36.4; O2SAT 95
[2022-06-24 10:30] VITALS: BP 94/63; PULSE 102; RESP 19; TEMP 36.8; O2SAT 95
[2022-06-24 11:00] VITALS: BP 102/68; PULSE 99; RESP 18; TEMP 37.1; O2SAT 97
[2022-06-24 12:00] VITALS: BP 102/58; PULSE 99; RESP 18; TEMP 36.9; O2SAT 96
[2022-07-01] MEDS: Normal Saline Flush 10 ML SYR IVP (08:07)
[2022-07-01 08:19] LABS: HCT 28.4 % (40.0-50.0); HGB 8.8 g/dL (13.5-17.5); MCH 33.7 pg (27.0-33.0); MCV 109 fL (80-95); MPV 12.3 fL (8.0-11.0); RBC 2.61 10^6/uL (4.36-5.78); RDW-SD 90.6 fL
[2022-07-01 08:42] LABS: Platelet Count 93 10^3/uL (130-400)
[2022-07-01 08:43] LABS: Absolute Monocyte Count 3.11 10^3/uL (0.1-0.8); Absolute Neutrophil Count 13.46 10^3/uL (1.2-6.7); Bands % 8
[2022-07-01 08:44] LABS: Metamyelocytes % 2; Myelocytes % 4
[2022-07-01 08:45] LABS: Anisocytosis 2+; Diff Comment Manual Differential; Hypochromasia 1+; Macrocytosis 1+; Polychromasia Present
[2022-07-01 08:47] LABS: ALT 20 U/L (16-63); AST 33 U/L (15-37); Albumin 3.2 g/dL (3.4-5.0); Alkaline Phosphatase 199 U/L (46-116); Anion Gap 13.9 mmol/L (3-11); BUN 15 mg/dL (7-18); Bilirubin, Total 0.7 mg/dL (0.2-1.0); CO2 26.1 mmol/L (21.0-32.0); Calcium 9.2 mg/dL (8.5-10.1); Chloride 99 mmol/L (98-107); Estimated GFR 76.08 (mL/min/1.73m2); Glucose 127 mg/dL (74-106); PHOSPHORUS 3.2 mg/dL (2.6-4.7); Potassium 4.5 mmol/L (3.5-5.1); Sodium 139 mmol/L (136-145); Total Protein 6.7 g/dL (6.4-8.2); Uric Acid 4.1 mg/dL (3.5-7.2)
== END 2022-07-12 23:59 | disposition home or self-care (01) ==
LOC: INF 02:13
PROVIDERS: PCP Internal Medicine Hematology & Oncology; Visit Provider Nurse Practitioner Adult Health
DX: C83.10 Mantle cell lymphoma, unspecified site (principal)
CPT/HCPCS: 36415; 36430; 80053; 86850; 86900; 86901; 86920; 84100; 84550; 85025; P9016